=== PATIENT | male | born 1985 ===

== ENCOUNTER 2023-03-19 08:11 | Outpatient (CLI) | payer MEDICAID, SELFPAY ==
--- NOTE | 2023-03-19 08:00 | RT.EKG_ITS ---
APPROVED REPORT Exam: Resting ECG Reason for Exam: Bar Porter High Risk Medication Patient Location: O HR:69 bpm ECG Measurements Heart Rate 69 AXIS RI 159 P 34 QRSd 104 QRS 92 QT 441 T 41 QTc 473 Conclusion Sinus rhythm...normal P axis, V-rate 50- 99 Borderline right axis deviation...QRS axis ( 90, 99) Otherwise normal ECG
== END 2023-03-19 08:12 | disposition home or self-care (01) ==
PROVIDERS: PCP Nurse Practitioner; Visit Provider Family Medicine
DX: Z79.899 Other long term (current) drug therapy (principal)
CPT/HCPCS: 93005; 93010